=== PATIENT | female | born 1985 | race Caucasian/White ===

== ENCOUNTER → 2017-04-06 | Outpatient (CLI) | payer BC ==
[~2017-04-06] MED LIST: MTR600X PO; ONDA4TAB4 PO; SERT1TAB68 PO
== END | disposition home or self-care (01) ==
LOC: C.RDSM 11:47
PROVIDERS: ATTEND Family Medicine Sports Medicine
DX: M25.532 Pain in left wrist (principal)

== ENCOUNTER 2020-11-02 23:47 | Inpatient (IN) ==
[2020-11-03] MEDS ORDERED: OXYTOCIN 30 UNITS/500 ML BAG IV PRN (00:15)
[2020-11-03] MEDS ORDERED: fentaNYL citrate 100 MCG/2 ML VIAL ONE ×3 (00:39→05:11)
[2020-11-03] MEDS ORDERED: ePHEDrine sulfate 50 MG/ML AMP ONE (00:39)
[2020-11-03] MEDS ORDERED: SODIUM CHLORIDE 0.9% INJ 10 ML VIAL ONE ×2 (00:39→05:48)
[2020-11-03] MEDS ORDERED: BUPIVACAINE 0.25% 30 ML VIAL ONE (00:39)
[2020-11-03] MEDS: LACTATED RINGER'S 1,000 ML IV PRN ×2 (00:40→01:45)
[2020-11-03] MEDS ORDERED: fentaNYL 2MCG/ML ROPIVACAINE 1.25MG/ML 100 ML BAG EPI ONE (00:40)
[2020-11-03 00:51] LABS: Hematocrit (blood only) 34.1 % (37-47); Hemoglobin 12.1 g/dL (12.0-16.0); Mean Corpuscular Hemoglobin 31.8 pg (25-34); Mean Corpuscular Hgb Conc 35.5 g/dL (32-36); Mean Corpuscular Volume 89.7 fL (80-100); Mean Platelet Volume 9.9 fL (7.4-10.4); Platelet Count 264 K/uL (130-400); RDW Coefficient of Variation 13.1 % (11.5-14.5); White Blood Count 10.77 K/uL (4.8-10.8)
--- NOTE | 2020-11-03 00:53 | Obstetrical Progress Note ---
Date of Service November 03, 2020 Assessment & Plan Admission and Anticipated Discharge Date Admission Date: November 03, 2020 Subjective Admit Note 35 F P2002 at 39 weeks admitted in active labor. GBS is negative. Covid is pending. Cervix 4-5/70/-1/vertex/intact. FHT Cat 1. Will admit in active labor and anticipate normal delivery. Results & Data ([facility]) Vital Signs (Past 12 Hours) Vital Signs Temp Pulse Resp BP 11/03/20 00:10 37.0 C 18 11/03/20 00:07 113 H 138/109 H
--- NOTE | 2020-11-03 02:56 | Anesthesiology Consultation ---
Date of Service November 03, 2020 Assessment & Plan (1) Encounter for pre-operative examination: Chart Review Chart Review: Acceptable Risk for Labor Epidural Consults Requested none ASA ASA2 Proposed Anesthesia Anesthesia Type: Labor Epidural Risk / Benefits Reviewed With: PT / POA / Parent / Guardian, Accepts Plan and Informed Consent Obtained History Height/Weight Height: 5 ft 4 in Weight: 78.925 kg Allergies Allergy/AdvReac Type Severity Reaction Status Date / Time hydromorphone Allergy Severe JERKING Verified 06/10/18 12:56 walnut Allergy Mild Verified 06/10/18 12:56 Medications Home Medications Medication Instructions Recorded Confirmed Last Taken sertraline 100 mg PO DAILY 06/10/18 10/27/20 11/02/20 08:00 doxylamine succinate [Unisom 25 mg PO HS PRN 10/27/20 10/27/20 11/02/20 08:00 (doxylamine)] vit no.[id number] 1 tab PO DAILY 10/27/20 10/27/20 11/02/20 08:00 [ Vitamin] pyridoxine (vitamin B6) [Vitamin 25 mg PO BID 10/27/20 10/27/20 11/02/20 08:00 B-6] Active Medications Generic Name Dose Route Start Last Admin Trade Name Freq PRN Reason Stop Dose Admin Lactated Ringer's 1,000 mls @ 125 mls/hr 11/03/20 00:15 11/03/20 01:45 Lr IV 11/05/20 00:14 125 mls/hr .Q8H PRN Administration L&D Protocol Protocol Exercise / Class Metabolic Activity II 4-5 Yardwork/Stairs/Walk up hill Past Surgical History Surgical History H/O wisdom tooth extraction Hx of appendectomy Past Anesthesia History No Hx of Anesthesia Complications and No Family Hx of Anesthesia Complications History of PONV No Hx of PONV and No Hx of Motion Sickness Social History Smoking Status: Never smoker Do You Dip or Chew Tobacco: No Hx Alcohol Use: No Hx Substance Use: No substance use type: does not use Physical Exam Vital Signs Last Vital Signs Temp 98.6 F 11/03/20 00:19 Pulse 74 11/03/20 00:47 Resp 18 11/03/20 00:19 BP 131/73 11/03/20 00:47 ENMT Mouth: no dentition abnormality Thyromental Distance: > or= 3.5 Finger Breadths Mallampati Class: II Neck normal visual inspection Respiratory normal respiratory effort Auscultation: lungs clear to auscultation bilaterally Cardiovascular Rate/Rhythm: regular rate and regular rhythm Testing Laboratory Results 11/03/20 00:36
[2020-11-03] MEDS ORDERED: NALOXONE HCL 0.4 MG/1 ML VIAL/CARP IV PRN ×2 (03:15→05:56)
[2020-11-03] MEDS ORDERED: fentaNYL 2MCG/ML ROPIVACAINE 1.25MG/ML 100 ML BAG EPI PRN (03:15)
[2020-11-03] MEDS ORDERED: diphenhydrAMINE 50 MG/ML VIAL IV PRN ×3 (03:15→23:56)
[2020-11-03] MEDS ORDERED: ePHEDrine sulfate 50 MG/ML AMP IV PRN ×2 (03:15→05:56)
[2020-11-03] MEDS ORDERED: ONDANSETRON INJ 2 MG/ML 2 ML VIAL IV PRN ×2 (03:15→23:56)
[2020-11-03] MEDS ORDERED: NALOXONE HCL 1 MG in SODIUM CHLORIDE 0.9% 1000ML 1,000 ML IV PRN ×2 (03:15→05:56)
[2020-11-03] MEDS ORDERED: LACTATED RINGER'S 1,000 ML IV SCH ×2 (05:15→06:30)
[2020-11-03] MEDS ORDERED: PROPOFOL IV EMULSION 10 MG/ML 20 ML VIAL IV ONE ×2 (05:30→06:29)
[2020-11-03] MEDS ORDERED: SUCCINYLCHOLINE 100MG/5ML SYR IV ONE (05:30)
[2020-11-03] MEDS ORDERED: MIDAZOLAM HCL 1 MG/ML 2ML VIAL ONE (05:31)
[2020-11-03] MEDS ORDERED: ONDANSETRON INJ 2 MG/ML 2 ML VIAL ONE (05:39)
[2020-11-03] MEDS ORDERED: OXYTOCIN 10 UNITS/ML VIAL ONE (05:48)
[2020-11-03] MEDS ORDERED: MoRPHine SULFATE PF 1 MG/ML 10 ML AMP/VIAL ONE (05:48)
[2020-11-03] MEDS ORDERED: MoRPHine SULFATE PF 1 MG/ML 10 ML AMP/VIAL INT SPINAL ONE (05:56)
[2020-11-03] MEDS ORDERED: NALOXONE HCL 0.08 MG in SYRINGE 1.8 ML IV PRN (05:56)
[2020-11-03] MEDS ORDERED: LACTATED RINGER'S 500 ML IV PRN (05:56)
[2020-11-03] MEDS ORDERED: DC INTRASPINAL MORPHINE SCH (06:00)
[2020-11-03] MEDS ORDERED: SODIUM CHLORIDE 0.9% 1000ML 1,000 ML IV SCH (06:00)
[2020-11-03] MEDS ORDERED: CITRIC ACID/SODIUM CITRATE 15 ML UDC PO SCH (06:00)
[2020-11-03] MEDS ORDERED: NO NARCOTICS OR SEDATIVES SCH (06:00)
[2020-11-03] MEDS ORDERED: ceFAZolin 2000MG 2,000 MG/15 ML SYR IV SCH (06:00)
--- NOTE | 2020-11-03 06:23 | Post Operative Brief Note ---
Immediate Post Op Note v1 Date of Surgery November 03, 2020 Pre & Post Diagnosis Operation Date: 11/03/20 05:00 Non-reassuring heart tones nuchal cord x2 I identified the patient and participated in the time-out.: Yes Procedure Operation Date: 11/03/20 05:00 Primary section low segment transverse Surgeon Floyd Aponte MD Special Warfare Operator Dr Castanon Estimated Blood Loss 800 Findings Consistent with Post-Op Diagnosis Live male Apgars 8/9 weight 6-15 nuchal cord x2 Fluids LR Specimens cord blood placenta cord blood for complete blood gas Drains Rodriguez Catheter Anesthesia Type General/Epidural Complications none none Disposition Accompanied Patient To Recovery: Yes Disposition: L&D Overlapping Procedure I was present for: the critical portions of procedure. I was immediately available: during the entire case. Back up surgeon: was not required during procedure.
[2020-11-03] MEDS ORDERED: SENNA 8.6 MG TAB PO PRN (06:25)
[2020-11-03] MEDS ORDERED: MAGNESIUM HYDROXIDE SUSP 30 ML UDC PO PRN (06:25)
[2020-11-03] MEDS ORDERED: BENZOCAINE 20% AER SPR 82.5 GM CAN EXT PRN (06:25)
[2020-11-03] MEDS ORDERED: HYDROCORTISONE ACETATE 25 MG SUPP PR PRN (06:25)
[2020-11-03] MEDS ORDERED: SUPERCREAM 0.870% 15 GM JAR EXT PRN (06:25)
[2020-11-03] MEDS ORDERED: DIPHTHERIA/TETANUS/PERTUSSIS 0.5 ML SYR/VIAL IM ONE (06:25)
[2020-11-03] MEDS: KETOROLAC 30 MG/ML VIAL IV PRN ×3 (06:28→20:45)
--- NOTE | 2020-11-03 06:36 | Anesthesiology Progress Note ---
Date of Service November 03, 2020 Anesthesia Post Procedure Vital Signs Vital Signs: Temp Pulse Resp BP Pulse Ox 11/03/20 06:30 99 H 99 11/03/20 06:26 102 H 141/87 H 11/03/20 06:25 99 H 97 11/03/20 06:20 95 H 99 11/03/20 06:15 104 H 131/73 100 11/03/20 05:06 98 H 100 11/03/20 05:01 112 H 100 11/03/20 04:56 96 H 100 11/03/20 04:51 100 H 100 11/03/20 04:46 91 H 100 11/03/20 04:43 135/71 11/03/20 04:41 100 H 100 11/03/20 04:36 93 H 100 11/03/20 04:31 66 97 11/03/20 04:28 66 116/64 11/03/20 04:26 67 97 11/03/20 04:21 69 97 11/03/20 04:16 64 99 11/03/20 04:12 67 115/71 11/03/20 04:11 76 99 11/03/20 04:06 82 100 11/03/20 04:01 71 99 11/03/20 03:59 67 110/69 11/03/20 03:56 64 100 11/03/20 03:51 70 100 11/03/20 03:46 76 100 11/03/20 03:43 97 H 135/72 11/03/20 03:41 107 H 100 11/03/20 03:36 68 100 11/03/20 03:31 85 98 11/03/20 03:30 98.6 F 18 11/03/20 03:26 76 99 11/03/20 03:25 79 130/86 11/03/20 03:21 78 100 11/03/20 03:19 85 118/74 11/03/20 03:16 83 98 11/03/20 03:14 80 128/76 11/03/20 03:11 76 127/81 100 11/03/20 03:09 75 137/88 11/03/20 03:06 82 100 11/03/20 03:01 77 100 11/03/20 02:56 81 100 11/03/20 00:47 74 131/73 11/03/20 00:19 98.6 F 18 11/03/20 00:10 98.6 F 18 11/03/20 00:07 113 H 138/109 H Pain Intensity Bilateral Lower Abdomen: Pain Intensity: 4 Transfer of Care Handoff Completed per policy Notes Mental Status: alert / awake / arousable and participated in evaluation Patient Amnestic to Procedure: Yes Nausea / Vomiting: adequately controlled Pain: adequately controlled Airway Patency, RR, SpO2: stable & adequate BP & HR: stable & adequate Hydration State: stable & adequate Anesthetic Complications: no major complications apparent and Pt Satisfied with anesthetic care
--- NOTE | 2020-11-03 06:40 | Obstetrical Progress Note ---
Date of Service November 03, 2020 Assessment & Plan Admission and Anticipated Discharge Date Admission Date: November 03, 2020 Subjective Pre-op note 35 F P2002 who had prolonged bradycardia with Cat 2 FHT. AROM with meconium fluid and internal monitor lead applied to scalp. Terbutaline given along with change in maternal position with no resolution of bradycardia. Decisiionmade to go to OR for stat section made. Patient and informed and aware. Consents signed. Results & Data ([facility]) Vital Signs (Past 12 Hours) Vital Signs Temp Pulse Resp BP Pulse Ox 11/03/20 06:30 99 H 99 11/03/20 06:26 102 H 141/87 H 11/03/20 06:25 99 H 97 11/03/20 06:20 95 H 99 11/03/20 06:15 104 H 131/73 100 11/03/20 05:06 98 H 100 11/03/20 05:01 112 H 100 11/03/20 04:56 96 H 100 11/03/20 04:51 100 H 100 11/03/20 04:46 91 H 100 11/03/20 04:43 135/71 11/03/20 04:41 100 H 100 11/03/20 04:36 93 H 100 11/03/20 04:31 66 97 11/03/20 04:28 66 116/64 11/03/20 04:26 67 97 11/03/20 04:21 69 97 11/03/20 04:16 64 99 11/03/20 04:12 67 115/71 11/03/20 04:11 76 99 11/03/20 04:06 82 100 11/03/20 04:01 71 99 11/03/20 03:59 67 110/69 11/03/20 03:56 64 100 11/03/20 03:51 70 100 11/03/20 03:46 76 100 11/03/20 03:43 97 H 135/72 11/03/20 03:41 107 H 100 11/03/20 03:36 68 100 11/03/20 03:31 85 98 11/03/20 03:30 37.0 C 18 11/03/20 03:26 76 99 11/03/20 03:25 79 130/86 11/03/20 03:21 78 100 11/03/20 03:19 85 118/74 11/03/20 03:16 83 98 11/03/20 03:14 80 128/76 11/03/20 03:11 76 127/81 100 11/03/20 03:09 75 137/88 11/03/20 03:06 82 100 11/03/20 03:01 77 100 11/03/20 02:56 81 100 11/03/20 00:47 74 131/73 11/03/20 00:19 37.0 C 18 11/03/20 00:10 37.0 C 18 11/03/20 00:07 113 H 138/109 H
[2020-11-03] MEDS ORDERED: TERBUTALINE SULFATE 1 MG/ML VIAL SQ ONE (06:55)
[2020-11-03 06:59] LABS: CO2 Cord Arterial Blood 49 mmHg (39.1-73.5); HCO3 Cord Arterial Blood 23 mmol/L (19.7-28.5); Oxygen Sat Cord Arterial Blood 73.7 % (<60); PO2 Cord Arterial Blood 36 mmHg (4.1-31.7); pH Cord Arterial Blood 7.29 (7.1-7.38)
[2020-11-03] MEDS: MEPERIDINE HCL 25 MG/ML CARP/VIAL IV PRN ×2 (07:12→07:29)
[2020-11-03] MEDS: OXYTOCIN 30 UNITS in LACTATED RINGER'S 1,000 ML IV SCH ×2 (07:16→15:34)
[2020-11-03] MEDS ORDERED: ACETAMINOPHEN 1000 MG/100 ML IV IV ONE (07:54)
--- NOTE | 2020-11-03 07:58 | Anesthesia Procedure Note ---
Date of Service November 03, 2020 Anesthesia Post Epidural Note Vital Signs Vital Signs: Temp Pulse Resp BP Pulse Ox 97.5 F L 74 18 135/79 99 11/03/20 06:15 11/03/20 07:56 11/03/20 07:00 11/03/20 07:56 11/03/20 07:55 Pain Intensity Bilateral Lower Abdomen: Pain Intensity: 10 Notes Mental Status: alert / awake / arousable and participated in evaluation Patient Amnestic to Procedure: Yes Nausea / Vomiting: adequately controlled Pain: adequately controlled Airway Patency, RR, SpO2: stable & adequate BP & HR: stable & adequate Hydration State: stable & adequate Neuraxial Anesthesia: was administered and sensory block is resolving Anesthetic Complications: no major complications apparent and Pt Satisfied with anesthetic care Epidural: Removed without complications and With tip intact Notes: Epidural was removed in the operating room.
[2020-11-03] MEDS ORDERED: FERROUS SULFATE 325 MG TAB PO SCH (08:00)
[2020-11-03] MEDS ORDERED: fentaNYL citrate 100 MCG/2 ML VIAL IV PRN (09:23)
[2020-11-03] MEDS: SIMETHICONE 80 MG CHEW PO SCH ×4 (10:03→20:45)
[2020-11-03] MEDS: DOCUSATE SODIUM 100 MG CAP PO SCH ×2 (10:03→20:45)
[2020-11-03] MEDS: PRENATAL VITAMIN 1 TAB PO SCH (10:03)
[2020-11-03] MEDS: SERTRALINE HCL 100 MG TABLET PO SCH (12:36)
[2020-11-03] MEDS ORDERED: PROMETHAZINE HCL 12.5 MG in SODIUM CHLORIDE 0.9% 50 ML IV STA (15:13)
--- NOTE | 2020-11-03 21:01 | Operative Report (OR) ---
DATE OF OPERATION: 11/03/2020 PREOPERATIVE DIAGNOSIS: Nonreassuring heart tones. POSTOPERATIVE DIAGNOSIS: Nonreassuring heart tones. PROCEDURE: Primary section, low segment, transverse. SURGEON: Floyd Aponte MD. CORPORATE AFFAIRS MANAGER: Clarissa Castanon MD. ANESTHESIA: Epidural with general. COMPLICATIONS: None. FINDINGS: Live male, Apgars 8 and 9, weight 6 pounds 15 ounces. Nuchal cord x2. CLINICAL HISTORY: The patient is a 35-year-old female, para 2-0-0-2, at 40 weeks and 2 days, admitted in labor. She progressed to 7 cm, had bradycardia, which was persistent and category 2 strip. The patient was placed in several different positions with no return to baseline and decision was made to do a primary section for non-reassuring heart tones category 2 strip not close to delivery. A timeout was called. Consents were obtained and antibiotics were given preop. DESCRIPTION OF PROCEDURE: After satisfactory general anesthesia, the patient was prepped and draped in usual sterile field prior to induction of anesthesia. A low Pfannenstiel incision through the abdomen and skin, entering into the abdominal cavity in successive layers was obtained. The fascia was identified. The peritoneum was opened in the usual manner. Bladder blade was entered after a bladder flap was made and a low segment transverse incision over the lower uterine segment was made. The incision was nicked. Amniotic sac was noted to be meconium stained. The incision was widened in the AP diameter. The was then delivered from the vertex presentation with the aid of fundal pressure delivering a live male. There was a nuchal cord x2, reduced at the time of delivery. The baby was active and crying at the time of delivery. The cord was doubly clamped and cut and handed to supercharger mechanic. Apgars 8 and 9, weight 6 pounds 15 ounces, a length of cord was obtained for cord blood. Cord blood was then obtained for cord gases. Placenta delivered spontaneously and intact. Uterus was then exteriorized. Ring forceps were then placed on both angles in the inferior margin. Uterus was cleaned of all clots and debris. Uterus was closed in a double layer closure with 0 Vicryl suture in a continuous interlocking fashion followed by another imbricating layer of 0 Vicryl suture. Tubes and ovaries bilaterally were found to be within normal limits. Uterus was once more inspected. The lower uterine segment was inspected. After the uterus was placed back into the normal anatomical position, the gutters were inspected, cleaned and irrigated. The fascia was then reapproximated from both ends using 0 Vicryl suture in a continuous fashion. Subcuticular space was then irrigated. Bleeders were cauterized. Subcuticular space was closed with 2-0 plain suture and skin was reapproximated with estefani. Clear urine was noted from the Rodriguez. Estimated blood loss 800 mL. Final sponge, needle and instrument count were found to be correct. The patient was then placed supine on a stretcher and taken to recovery room in stable condition. I attest to the content of the Intraoperative Record and any orders documented therein. Any exception s are noted below.
[2020-11-03] MEDS ORDERED: MEPERIDINE HCL 50 MG/ML CARP IV PRN (23:56)
[2020-11-03] MEDS ORDERED: PROMETHAZINE HCL 25 MG in SODIUM CHLORIDE 0.9% 50 ML IV PRN (23:56)
[2020-11-03] MEDS ORDERED: diphenhydrAMINE Capsule 25 MG CAP PO PRN (23:56)
[2020-11-03] MEDS ORDERED: KETOROLAC 30 MG/ML VIAL IV PRN (23:56)
[2020-11-04 06:07] LABS: Basophils # (auto) 0.02 K/uL (0-0.2); Basophils % (auto) 0.2 %; Eosinophils # (auto) 0.05 K/uL (0-0.5); Eosinophils % (auto) 0.5 %; Hematocrit (blood only) 28.4 % (37-47); Hemoglobin 10.1 g/dL (12.0-16.0); Immature Granulocytes # (auto) 0.03 K/uL (0.00-0.02); Immature Granulocytes % (auto) 0.3 %; Lymphocytes # (auto) 1.32 K/uL (1.2-3.4); Mean Corpuscular Hemoglobin 31.8 pg (25-34); Mean Corpuscular Hgb Conc 35.6 g/dL (32-36); Mean Corpuscular Volume 89.3 fL (80-100); Mean Platelet Volume 9.5 fL (7.4-10.4); Monocytes # (auto) 0.51 K/uL (0.11-0.59); Monocytes % (auto) 5.4 %; Neutrophils # (auto) 7.53 K/uL (1.4-6.5); Neutrophils % (auto) 79.6 %; Platelet Count 223 K/uL (130-400); RDW Standard Deviation 42.6 fL (36.4-46.3); Red Blood Count 3.18 M/uL (4.2-5.4); White Blood Count 9.46 K/uL (4.8-10.8)
--- NOTE | 2020-11-04 08:06 | Obstetrical Progress Note ---
Date of Service November 04, 2020 Assessment & Plan Admission and Anticipated Discharge Date Admission Date: November 03, 2020 Subjective Patient is seen and examined. She feels well, no complaints. Pain is under control with oral meds. Ambulating without dizziness Voiding without difficulty Tolerating regular diet with out N&V Flatus +, BM neg Bleeding is minimal No fever/ chills/ CP/ SOB/ N&V/ Leg pain Breast feeding without problems Vital Signs Temp Pulse Pulse Resp BP BP Pulse Ox 11/04/20 07:48 36.9 C 74 18 115/73 99 11/04/20 04:50 37.0 C 90 18 109/69 11/04/20 00:30 36.8 C 81 18 98/61 L 98 11/03/20 23:35 17 96 11/03/20 22:35 17 96 11/03/20 21:30 18 97 11/03/20 20:25 37.1 C 71 18 137/78 99 11/03/20 19:30 17 97 11/03/20 18:25 16 96 11/03/20 17:00 18 98 11/03/20 16:45 16 98 11/03/20 15:40 18 96 11/03/20 14:45 37.1 C 69 18 127/83 98 11/03/20 12:30 37.1 C 74 18 125/76 94 11/03/20 12:14 18 95 11/03/20 11:20 16 96 11/03/20 10:30 16 96 11/03/20 10:00 37.2 C 77 18 120/71 97 11/03/20 09:40 18 98 11/03/20 09:00 36.8 C 76 18 129/77 97 11/03/20 08:46 86 133/80 11/03/20 08:45 74 98 11/03/20 08:41 75 94 11/03/20 08:40 77 96 11/03/20 08:36 81 133/76 11/03/20 08:35 74 99 11/03/20 08:31 81 93 11/03/20 08:30 71 100 11/03/20 08:26 82 144/87 H 11/03/20 08:25 87 100 11/03/20 08:20 90 100 11/03/20 08:16 75 135/82 11/03/20 08:15 36.8 C 89 16 135/82 97 11/03/20 08:12 84 93 11/03/20 08:10 72 98 11/03/20 08:06 73 135/82 Intake and Output 11/03/20 11/04/20 11/04/20 22:59 06:59 14:59 Intake Total 2002 228 / 5186 Output Total 3400 / 4500 Balance 2002 -1116 Intake: IV 2002 100 / 300 Lr 1,000 ml @ 125 mls/hr IV . 1000 / 1000 Q8H MICHAEL Rx#:[id number] Pitocin 30 Units In Lr 1,000 ml 1002 1002005 @ 125 mls/hr IV .Q8H2M MICHAEL Rx# :[id number] Oral 1280 / 2180 Output: Urine 400 / 400 Urine Amount (Catheter) 3000 / 4100 Rodriguez/Indwelling 3000 / 4100 Lab Results 11/03/20 11/03/20 11/03/20 Range/Units 00:36 05:31 Unknown WBC 10.77 (4.8-10.8) K/uL RBC 3.80 L (4.2-5.4) M/uL Hgb 12.1 (12.0-16.0) g/dL Hct 34.1 L (37-47) % MCV 89.7 (80-100) fL MCH 31.8 (25-34) pg MCHC 35.5 (32-36) g/dL RDW Std Deviation 43.0 (36.4-46.3) fL RDW Coeff of Simran 13.1 (11.5-14.5) % Plt Count 264 (130-400) K/uL MPV 9.9 (7.4-10.4) fL Immature Gran % (Auto) % Neut % (Auto) % Lymph % (Auto) % [place] % (Auto) % Eos % (Auto) % Baso % (Auto) % Neut # (Auto) (1.4-6.5) K/uL Lymph # (Auto) (1.2-3.4) K/uL Walsh # (Auto) (0.11-0.59) K/uL Eos # (Auto) (0-0.5) K/uL Baso # (Auto) (0-0.2) K/uL Immature Gran # (Auto) (0.00-0.02) K/uL Cord ABG pH 7.29 (7.1-7.38) Cord ABG pCO2 49 (39.1-73.5) mmHg Cord ABG pO2 36 H (4.1-31.7) mmHg Cord ABG HCO3 23 (19.7-28.5) mmol/L Cord ABG Base Excess -4.0 (-9-1.8) mEq/L Cord ABG O2 Sat 73.7 H (<60) % Barometric Pressure 734.6 mm/Hg Blood Gas Comments INFANT A SARS-CoV-2, RNA, NAAT NEGATIVE (NEGATIVE) 11/04/20 Range/Units 05:48 WBC 9.46 (4.8-10.8) K/uL RBC 3.18 L (4.2-5.4) M/uL Hgb 10.1 L (12.0-16.0) g/dL Hct 28.4 L (37-47) % MCV 89.3 (80-100) fL MCH 31.8 (25-34) pg MCHC 35.6 (32-36) g/dL RDW Std Deviation 42.6 (36.4-46.3) fL RDW Coeff of Simran 13.0 (11.5-14.5) % Plt Count 223 (130-400) K/uL MPV 9.5 (7.4-10.4) fL Immature Gran % (Auto) 0.3 % Neut % (Auto) 79.6 % Lymph % (Auto) 14.0 % Walsh % (Auto) 5.4 % Eos % (Auto) 0.5 % Baso % (Auto) 0.2 % Neut # (Auto) 7.53 H (1.4-6.5) K/uL Lymph # (Auto) 1.32 (1.2-3.4) K/uL Walsh # (Auto) 0.51 (0.11-0.59) K/uL Eos # (Auto) 0.05 (0-0.5) K/uL Baso # (Auto) 0.02 (0-0.2) K/uL Immature Gran # (Auto) 0.03 H (0.00-0.02) K/uL Cord ABG pH (7.1-7.38) Cord ABG pCO2 (39.1-73.5) mmHg Cord ABG pO2 (4.1-31.7) mmHg Cord ABG HCO3 (19.7-28.5) mmol/L Cord ABG Base Excess (-9-1.8) mEq/L Cord ABG O2 Sat (<60) % Barometric Pressure mm/Hg Blood Gas Comments SARS-CoV-2, RNA, NAAT (NEGATIVE) PE: General: Alert, orientedx3, NAD CVS: S1S2 RRR Lungs; CTAB Abd: soft, NT, ND, BS+, fundus firm, below Umbilicus Incision/ Dressing: Clean, dry, intact, offered removal but desires take pain meds beforehand Perineum intact, Lochia rubra minimal Ext; NT, no edema AP: 35 yo s/p C Section, pod# 1 VSS Afebrile doing well Continue routine postop care Encourage ambulation, PO intake All questions were answered D/C home tomorrow Results & Data ([facility]) Vital Signs (Past 12 Hours) Vital Signs Temp Pulse Resp BP Pulse Ox 11/04/20 07:48 36.9 C 74 18 115/73 99 11/04/20 04:50 37.0 C 90 18 109/69 11/04/20 00:30 36.8 C 81 18 98/61 L 98 11/03/20 23:35 17 96 11/03/20 22:35 17 96 11/03/20 21:30 18 97 11/03/20 20:25 37.1 C 71 18 137/78 99
[2020-11-04] MEDS: SIMETHICONE 80 MG CHEW PO SCH ×4 (08:30→20:24)
[2020-11-04] MEDS: IBUPROFEN 600 MG TAB PO PRN ×3 (08:32→20:23)
[2020-11-04] MEDS: DOCUSATE SODIUM 100 MG CAP PO SCH ×2 (08:32→20:24)
[2020-11-04] MEDS: oxyCODONE/ACETAMINOPHEN 5mg/325mg TAB PO PRN ×4 (08:33→22:27)
[2020-11-04] MEDS: SERTRALINE HCL 100 MG TABLET PO SCH (08:35)
[2020-11-04] MEDS: PRENATAL VITAMIN 1 TAB PO SCH (08:35)
[2020-11-04] MEDS ORDERED: bisacodyL 5 MG TABEC PO SCH (20:00)
[2020-11-05] MEDS: IBUPROFEN 600 MG TAB PO PRN ×3 (00:13→08:17)
[2020-11-05] MEDS: oxyCODONE/ACETAMINOPHEN 5mg/325mg TAB PO PRN (04:23)
[2020-11-05 06:09] LABS: Hematocrit (blood only) 26.6 % (37-47); Hemoglobin 9.4 g/dL (12.0-16.0)
[2020-11-05] MEDS ORDERED: bisacodyL 10 MG SUPP PR PRN (06:25)
--- NOTE | 2020-11-05 07:53 | Surgery Progress Note ---
Date of Service November 05, 2020 Assessment & Plan Admission and Anticipated Discharge Date Admission Date: November 03, 2020 Subjective POD#2 doing fine tolerating diet passing gas ambulating well breast feeding well Physical Exam Constitutional: WD/WN, vitals as above well developed and comfortable incision c/d/i abdomen soft and non-tender fundus firm no edema neg Keila's for d/c home Results & Data ([facility]) Vital Signs (Past 12 Hours) Vital Signs Temp Pulse Resp BP Pulse Ox 11/05/20 00:30 36.7 C 72 18 121/77 11/04/20 20:15 36.9 C 92 H 18 130/86 99 Laboratory Results 11/03/20 11/03/20 11/03/20 00:36 05:31 Unknown WBC 10.77 RBC 3.80 L Hgb 12.1 Hct 34.1 L MCV 89.7 MCH 31.8 MCHC 35.5 RDW Std Deviation 43.0 RDW Coeff of Simran 13.1 Plt Count 264 MPV 9.9 Immature Gran % (Auto) Neut % (Auto) Lymph % (Auto) [place] % (Auto) Eos % (Auto) Baso % (Auto) Neut # (Auto) Lymph # (Auto) [place] # (Auto) Eos # (Auto) Baso # (Auto) Immature Gran # (Auto) Cord ABG pH 7.29 Cord ABG pCO2 49 Cord ABG pO2 36 H Cord ABG HCO3 23 Cord ABG Base Excess -4.0 Cord ABG O2 Sat 73.7 H Barometric Pressure 734.6 Blood Gas Comments A SARS-CoV-2, RNA, NAAT NEGATIVE 11/04/20 11/05/20 05:48 05:49 WBC 9.46 RBC 3.18 L Hgb 10.1 L 9.4 L Hct 28.4 L 26.6 L MCV 89.3 MCH 31.8 MCHC 35.6 RDW Std Deviation 42.6 RDW Coeff of Simran 13.0 Plt Count 223 MPV 9.5 Immature Gran % (Auto) 0.3 Neut % (Auto) 79.6 Lymph % (Auto) 14.0 [place] % (Auto) 5.4 Eos % (Auto) 0.5 Baso % (Auto) 0.2 Neut # (Auto) 7.53 H Lymph # (Auto) 1.32 [place] # (Auto) 0.51 Eos # (Auto) 0.05 Baso # (Auto) 0.02 Immature Gran # (Auto) 0.03 H Cord ABG pH Cord ABG pCO2 Cord ABG pO2 Cord ABG HCO3 Cord ABG Base Excess Cord ABG O2 Sat Barometric Pressure Blood Gas Comments SARS-CoV-2, RNA, NAAT
[2020-11-05] MEDS: DOCUSATE SODIUM 100 MG CAP PO SCH (08:16)
[2020-11-05] MEDS: SERTRALINE HCL 100 MG TABLET PO SCH (08:16)
[2020-11-05] MEDS: SIMETHICONE 80 MG CHEW PO SCH (08:16)
[2020-11-05] MEDS: PRENATAL VITAMIN 1 TAB PO SCH (08:17)
--- NOTE | 2020-11-05 11:59 | Anesthesiology Progress Note ---
Date of Service November 05, 2020 Anesthesia Post Procedure Vital Signs Vital Signs: Temp Pulse Resp BP Pulse Ox 11/05/20 09:11 37.0 C 74 18 127/91 96 11/05/20 08:10 37.0 C 74 18 127/91 96 11/05/20 00:30 36.7 C 72 18 121/77 11/04/20 20:15 36.9 C 92 H 18 130/86 99 11/04/20 13:30 36.7 C 77 18 125/75 98 Pain Intensity Bilateral Lower Abdomen: Pain Intensity: 4 Notes Mental Status: alert / awake / arousable Patient Amnestic to Procedure: Yes Nausea / Vomiting: adequately controlled Pain: see Notes below Airway Patency, RR, SpO2: stable & adequate BP & HR: stable & adequate Hydration State: stable & adequate Neuraxial Anesthesia: was administered and see Notes below Anesthetic Complications: see Notes below Notes: Patient reports that she developed bilateral jaw pain immediately after her emergent GA for . In addition, she reports that her mouth opening is limited secondary to pain and that the pain is making it difficult to eat. The jaw is not locking open or shut at this time. I reviewed the anesthesia record which showed an easy, atraumatic intubation on the first attempt with a MAC 3 blade and a 6.5 ETT. The patient did receive 100mg of succinylcholine to facilitate intubation. I discussed with the patient that I suspect her jaw pain is more due to the succinylcholine than the actual intubation since the intubation itself was reported to be very easy. I encouraged the patient to eat soft foods and use ibuprofen and heat pads to help with the pain. In addition, there is some evidence that vitamin C may be helpful with succinylcholine induced myalgias. If the patient's symptoms have not improved within the week, she was encouraged to call the anesthesia PAT clinic so that we can facilitate an appointment with an oral maxillofacial specialist for evaluation and possible referral to physical therapy for TMJ disfunction. Renetta Mcallister MD, PhD Anesthesiologist
--- NOTE | 2020-11-09 18:04 | Discharge Summary (DS) ---
HOSPITAL COURSE: The patient is a 35-year-old female, para 2-0-0-2, at 40 weeks and 2 days, admitted in labor. She progressed to 7 cm, had a prolonged bradycardia, persistent category 2 strip remote from delivery. Decision was then made to take the patient to the operating room for an emergency section. was done under general anesthesia, delivering a live male. Apgars were 8 and 9. There was a nuchal cord x2 at the time of delivery. weight was 6 pounds 15 ounces. Hospital course was unremarkable. The patient was discharged home on 11/05/2000 in stable condition. Home going instructions were given. Regular diet on discharge. Medications included Percocet and Motrin, and followup will be in the office in 1 week for an incision check.
== END 2020-11-05 14:00 | disposition home or self-care (01) | DRG 788 ==
LOC: OPB 23:47 → 4S1 23:48 → 4S2 11-03 10:09